=== PATIENT | male | born 1995 | race Caucasian/White ===

== ENCOUNTER 2018-06-04 22:35 | Emergency (ER) | payer OTHER ==
[2018-06-04 22:41] VITALS: BP 147/87
--- NOTE | 2018-06-04 23:02 | ED Physician Documentation ---
PD HPI LOWER EXT INJURY - Stated complaint Stated Complaint: RT KNEE PAIN - Chief complaint Chief Complaint: Ext Problem - History obtained from History obtained from: Patient - History of Present Illness PD HPI LOW EXT INJURY LOCATION: Right, Knee Where injury occurred: Other (gym) Timing - onset: Yesterday Timing - details: Abrupt onset Pain level now: 4 Improved by: Rest Worsened by: Moving Associated symptoms: No: Weakness, Numbness, Tingling, Swelling, Discolored Recently seen: Not recently seen - Additional information Additional information: sudden onset of right knee pain, medial aspect, when doing leg presses at the gym yesterday. During the day today, he has had gradual worsening of this pain and tonight had difficulty weight-bearing due to this pain. It is limited to medial aspect of the right knee Review of Systems Constitutional: denies: Fever Musculoskeletal: reports: Joint pain, Pain with weight bearing. denies: Joint swelling Neurologic: denies: Focal weakness, Numbness PD PAST MEDICAL HISTORY - Past Medical History Past Medical History: No - Past Surgical History Past Surgical History: No - Present Medications Home Medications: Ambulatory Orders Medication Instructions Recorded Confirmed No Known Home Medications 06/04/18 06/04/18 - Allergies Allergies/Adverse Reactions: Allergies Allergy/AdvReac Type Severity Reaction Status Date / Time No Known Drug Allergies Allergy Verified 06/04/18 22:41 - Living Situation Living Arrangement: reports: At home PD ED PE NORMAL - Vitals Vital signs reviewed: Yes - General General: Alert and oriented X 3, No acute distress, Well developed/nourished - Derm Derm: Normal color, Warm and dry - Extremities Extremities: No edema - Neuro Neuro: No motor deficit, No sensory deficit PD ED PE EXPANDED - Extremities Extremities: Tenderness (right knee, medial aspect), Limited ROM (ROM is intact right knee, but pain is worse at extremes of flexion, extension), Pedal Pulses Present. No: Deformity, Swelling, Bruising, Joint effusion, Red warm joint Results - Vitals Vitals: Vital Signs - 24 hr 06/04/18 22:35 Heart Rate 83 Respiratory 16 Rate Blood Pressure 147/87 H O2 Saturation 98 Oxygen O2 Source Room air PD MEDICAL DECISION MAKING - ED course Complexity details: considered differential, d/w patient ED course: emergent testing not indicated at this time; no specific injury (specific time of onset was while performing leg presses, but there is no injury to suggest pathology that would be demonstrable on plain-film xrays, and no indication for CT or MRI on an emergent basis). Plan is to place knee immobilizer and provide crutches to minimize weight-bearing, return if worse, and f/u with PMD for reevaluation. Departure - Departure Disposition: 01 Home, Self Care Clinical Impression: Right knee sprain Condition: Good Instructions: ED Crutch Walking, ED Immobilizer Knee, ED Sprain Knee Follow-Up: TIMUR Richardson [Provider Group] (Call in the morning to arrange for next available appointment) Forms: Activity restrictions Discharge Date/Time: 06/04/18 23:49
== END 2018-06-04 23:49 | disposition home or self-care (01) ==
LOC: ED 22:35
DX: S83.91XA Sprain of unspecified site of right knee, initial encounter (principal); X50.9XXA Other and unspecified overexertion or strenuous movements or postures, initial encounter; Y93.B1 Activity, exercise machines primarily for muscle strengthening; Y92.39 Other specified sports and athletic area as the place of occurrence of the external cause
CPT/HCPCS: 99283

== ENCOUNTER 2020-12-21 20:58 | Emergency (ER) | payer OTHER ==
[2020-12-21] MEDS ORDERED: IBUPROFEN 600 MG TABLET PO STA (22:56)
--- NOTE | 2020-12-21 22:58 | ED Physician Documentation ---
History of Present Illness - Stated complaint Stated Complaint: WOODY,LIGHT SENSITIVE,VOMITING - Chief complaint Chief Complaint: Neuro - History obtained from History obtained from: Patient - Additonal information Additional information: 25-year-old man, previously healthy, presents with bilateral frontal headache that is 5 out of 10, aching, constant, gradul onset, nonradiating, worse with bright lights, associated with intermittent dizziness while walking around and upon standing, improved with ibuprofen this morning. Also with associated sore throat, fatigue, body aches. Patient states that he was nauseous and threw up a small amount of spittle yesterday and this morning. Feels better now. Review of Systems Ten Systems: 10 systems reviewed and negative Constitutional: reports: Myalgias, Fatigue. denies: Fever Eyes: reports: Photophobia Throat: reports: Sore throat Cardiac: denies: Chest pain / pressure, Palpitations Respiratory: denies: Dyspnea GI: reports: Nausea Neurologic: reports: Headache PD PAST MEDICAL HISTORY - Past Medical History Past Medical History: No - Past Surgical History Past Surgical History: No - Present Medications Home Medications: Ambulatory Orders Medication Instructions Recorded Confirmed No Known Home Medications 06/04/18 12/21/20 - Allergies Allergies/Adverse Reactions: Allergies Allergy/AdvReac Type Severity Reaction Status Date / Time No Known Drug Allergies Allergy Verified 06/04/18 22:41 - Social History Does the pt smoke?: No Smoking Status: Never smoker Does the pt drink ETOH?: No Does the pt have substance abuse?: No - Immunizations Immunizations are current?: Yes PD ED PE NORMAL - Vitals Vital signs reviewed: Yes - General General: Alert and oriented X 3, No acute distress, Well developed/nourished - HEENT HEENT: Atraumatic, PERRL, EOMI, Moist mucous membranes, Pharynx benign - Neck Neck: Supple, no meningeal sign - Cardiac Cardiac: RRR - Respiratory Respiratory: No respiratory distress, Clear bilaterally - Abdomen Abdomen: Non tender, Non distended - Derm Derm: Normal color, Warm and dry Results - Vitals Vitals: Vital Signs - 24 hr 12/21/20 12/21/20 12/21/20 21:02 21:46 23:11 Temperature 36.8 C 36.8 C 36.7 C Heart Rate 73 73 72 Respiratory 18 18 17 Rate Blood Pressure 145/75 H 142/72 H 130/71 O2 Saturation 100 100 99 Oxygen O2 Source Room air PD MEDICAL DECISION MAKING - ED course ED course: 25-year-old man presented with URI symptoms and headache, declining pain medication in the emergency department. Normal neurologic exam. Return precautions given. Patient will follow up with [facility]. Departure - Departure Disposition: Home, Self Care Clinical Impression: Headache, Sore throat, Nausea Condition: Good Instructions: ED Headache Tension Comments: You were seen in the emergency department for headache, sore throat, fatigue, body aches, and dizziness. Please stay home and get lots of rest, drink 8 to 10 glasses of water a day, get at least 8 hours of sleep and wash your hands regularly and wear a mask around other people in case you are contagious. Patricia perla-up with [facility] for clearance prior to return to work. Return to the emergency department if you have any new or worsening symptoms or other concerns. Forms: Activity restrictions Discharge Date/Time: 12/21/20 23:11
[2020-12-21 23:12] VITALS: BP 130/71
== END 2020-12-21 23:11 | disposition home or self-care (01) ==
LOC: ED 20:58
DX: R51.9 Headache, unspecified (principal); J02.9 Acute pharyngitis, unspecified; R11.0 Nausea; R42 Dizziness and giddiness; R53.83 Other fatigue
CPT/HCPCS: 99282; 99283; A9270